=== PATIENT | male | born 1940 | race Caucasian/White ===

== ENCOUNTER 2018-08-29 05:39 | Day surgery (SDC) | payer OTHER, MEDICARE ==
[~2018-08-29] VITALS: Ht 177.8 cm; Wt 74.5 kg
--- NOTE | ~2018-08-29 | O ---
[facility] [place] [address] OPERATIVE REPORT Name: TEZ BELTRAN Room #: 150-8 [facility]#: [id number] Admission: 08/29/18 Attend Phys: Shaun Doe MD Discharge: Date of : 38 Report #: [id number] THIS REPORT FOR: //name// CC: Abdoulaye Hines MD DATE OF SERVICE: 08/29/2018 SURGEON: Shaun Doe MD FRAMING MACHINE TENDER: None. PREOPERATIVE DIAGNOSIS: Bilateral lower lid ectropion. POSTOPERATIVE DIAGNOSIS: Bilateral lower lid ectropion. OPERATION PERFORMED: Bilateral lower lid ectropion repair. ANESTHESIA: Local with IV sedation. COMPLICATIONS: None. INDICATIONS FOR PROCEDURE: This patient has bilateral acquired lower lid ectropion with chronic tearing and discharge. The current procedures are undertaken in order to improve the patient's visual function, lacrimal outflow, and level of comfort. Informed consent was obtained to include but not limit to the risk of loss of vision, bleeding, infection, scarring, failure to improve the problem and need for further surgery. DESCRIPTION OF OPERATION: The patient was taken to the operating room where 2% Xylocaine with epinephrine mixed with equal parts of 0.75% Marcaine with Wydase was administered transcutaneously and transconjunctivally to each lower lid and lateral canthal area. The patient was then prepped and draped in the usual sterile fashion. A Genna clamp was then used to clamp the left lateral canthus following which a sharp canthotomy and cantholysis were performed. The tarsal strip was prepared laterally, removing the lash bearing portion of the redundant lid margin and the redundant tarsal plate. Hemostasis was achieved with a monopolar cautery, as it was throughout the case. The tarsal strip was then secured to the internal portion of the lateral orbital tubercle with two interrupted 5-0 Prolene sutures. The lateral canthal angle was sharply reformed as the subcutaneous structures and the skin were closed with multiple interrupted 6-0 plain gut sutures. Attention was then turned to the right side where the same procedure was [facility] [address] [place] [address] OPERATIVE REPORT Name: TEZ BELTRAN Room #: 150-8 [facility]#: [id number] Admission: 08/29/18 Attend Phys: Shaun Doe MD Discharge: Date of : 39 Report #: [id number] performed. The wounds were cleaned and dressed with ophthalmic antibiotic ointment. The patient was then transported to the recovery area, having tolerated the procedure well with no anesthetic or operative complications being noted. By: 1450 1455 Shaun Doe MD /nt
[~2018-08-29 05:39] MED LIST: ADULT LOW DOSE81 MG PO; ALEVE220 M1 PO; ALEVE220 MG PO; AMBEREN; ANUCORT-HC25 MG RECTAL; APAP/CODEINE ELI5 M1 OR; ARTIFICIAL TEA1 EACH OPHTHALMIC; CARDIZEM CD120 MG; CARDIZEM CD180 MG PO; CARDURA4 MG PO; CARTEOLOL HCL OPHTHALMIC; CARTIA XT180 M1 PO; COUMADIN 2 MG TA2 M1; COUMADIN 5 MG TA5 M1; DOXYCYCLINE 10100 M1; ENOXAPARIN40 MG/0.1; FLOMAX0.4 MG PO; GLUCOSAMINE COMPLEX PO; HYDROCODON-ACE1 EAC8; MIRALAX255 GM PO; MUCINEX600 MG; OXYCONTIN15 MG PO; PRADAXA150 MG PO; PROBIOTIC1 EAC1 PO; PROSCAR 5MG TABL5 MG PO; PROTONIX40 M1 PO; SIMVASTATIN40 MG; TYLENOL325 MG PO; XARELTO20 MG PO; ZOCOR 10 MG TAB10 MG PO; ZPAK PO
[2018-08-29 13:30] VITALS: BP 123/57
== END 2018-08-29 15:55 | disposition home or self-care (01) ==
LOC: TBA 05:39 → OR 05:39
DX: H02.105 Unspecified ectropion of left lower eyelid (principal); H02.102 Unspecified ectropion of right lower eyelid; I48.91 Unspecified atrial fibrillation; E78.00 Pure hypercholesterolemia, unspecified; M10.9 Gout, unspecified; G47.33 Obstructive sleep apnea (adult) (pediatric); K21.9 Gastro-esophageal reflux disease without esophagitis; Z98.41 Cataract extraction status, right eye; Z98.42 Cataract extraction status, left eye; Z96.641 Presence of right artificial hip joint; Z98.890 Other specified postprocedural states; Z85.46 Personal history of malignant neoplasm of prostate; Z85.828 Personal history of other malignant neoplasm of skin; Z87.19 Personal history of other diseases of the digestive system; Z79.01 Long term (current) use of anticoagulants; Z79.899 Other long term (current) drug therapy
CPT/HCPCS: 50010; 50101; 50386; 50398; 51636; 56527; 56531; 62110; 62850; 70005

== ENCOUNTER → 2018-12-26 | Outpatient (CLI) | payer OTHER, MEDICARE ==
[~2018-12-26] VITALS: Ht 177.8 cm; Wt 73.9 kg
--- NOTE | ~2018-12-26 | P ---
[facility] [place] [address] PROCEDURE REPORT Name: BELTRANTEZ Room #: REG [facility]#: [id number] Admission: 12/26/18 ������������������ Attend Phys: Joseph Calderon MD Discharge: ������������������ Date of : 39 Report #: [id number] THIS REPORT FOR: //name// CC: NICOLE Calderon BRIEF HISTORY: The patient is a 78-year-old male with a prior history of Haley's esophagus. He presents for a screening due to his history of Haley's. PREOPERATIVE DIAGNOSIS: History of Haley's esophagus. POSTOPERATIVE DIAGNOSES: 1. Small hiatus hernia. 2. Diffuse erythematous gastritis. MEDICATIONS: Deep sedation with propofol per anesthesia. SPECIMEN: Biopsies GE junction, rule out Haley's. ESTIMATED BLOOD LOSS: 3 mL. PROCEDURE: EGD with biopsy findings. DESCRIPTION OF PROCEDURE: With the patient in left lateral decubitus position, the Olympus video endoscope was inserted in cervical esophagus without difficulty. Examination of this organ through its entire length revealed normal esophageal mucosa down to the squamocolumnar junction. The patient was also noted to have a small 2 cm sliding type hiatus hernia. There was some very slight irregularity of the squamocolumnar junction. It was examined with white light as well as narrow band imaging. Overall, significant Haley's mucosa was not seen. However, he has had biopsy evidence of Haley's mucosa in the past. Biopsies were obtained right at the squamocolumnar junction. The mucosa was flat. There were no strictures or masses. Scope was advanced in the stomach, was examined on end view as well as retroflexed views. There was pattern of a diffuse gastritis. This has been noted in the past. No ulcers or erosions were seen. There were no retained solids or liquids in the stomach. Upon retroflexion, the hiatus hernia was seen. The squamocolumnar junction was examined in the retroflexed position and no additional findings were noted. Scope was further advanced. The pylorus, duodenal bulb, and postbulbar duodenal sweep were inspected and noted to be unremarkable. At that point, the scope was slowly withdrawn and careful circumferential views were obtained. As we withdrew the scope through the esophagus, tertiary contractions were seen. The patient has had solid food dysphagia in the past, but reports no problems at this time with solid food dysphagia. Scope was withdrawn. The patient tolerated the procedure well. [address] [address] PROCEDURE REPORT Name: TEZ BELTRAN [facility]: [facility] [id number] Admission: 12/26/18 ������������������ Attend Phys: Joseph Calderon MD Discharge: ������������������ Date of : 39 Report #: [id number] CONDITION OF THE PATIENT UPON DISCHARGE: Following procedure, the patient drowsy, aroused, conversant and will be discharged home when fully ambulatory. INSTRUCTIONS TO THE PATIENT AND FAMILY AT THE TIME OF DISCHARGE: History of Haley's noted. Findings for Haley's are not impressive at all today. We will follow up on biopsies obtained today. Difficulties distinguishing Haley's mucosa from intestinal metaplasia of the cardia. We will follow up on biopsies and make further recommendations. However, he should continue his PPI for control of reflux symptoms. He has been able to reduce his PPI from twice daily to once daily. We advised him to continue to do so and make adjustments based on symptoms. In addition, the patient tells me just about every meal, when he eats, he will feel food going his airway, he will start coughing. Therefore, we will obtain a video swallow for further evaluation of aspiration. He will otherwise return to care of Dr. Nicole Williamson and return to see me as needed. ��������������������������������������������� ���������������������������������������� By: ��������������������������������������������� 0926 40 Joseph Calderon MD /deon
--- NOTE | 2018-12-30 15:25 | PATH ---
[facility] [address] [place] [address] PATHOLOGY RPT PROCEDURE Name: TEZ BELTRAN Room #: REG SAMUEL Guevara.#: [id number] ������������������ Admission: 12/26/18 ������������������ Date of : 39 Discharge: Report #: [id number] Path Case #: [id number] [facility] Accession Number: [id number] . 01 Material submitted: . BX OF GE JUNCTION R/O SANTAMARIA'S . 01 Clinical history: . Pre-OP DX: Hx Santamaria's esophagus, dysphagia Post-OP DX: Hiatal hernia, gastritis . 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 - Negative for dysplasia. - Squamous mucosa with mild esophagitis. (IUV:pit 12/27/2018) QTP/12/27/2018 . 02 Comment: The above diagnosis of Santamaria's esophagus is made due to presence of intestinal metaplasia and with the assumption that the biopsies were obtained from the columnar mucosa in the distal esophagus located at least 1 cm proximal to the top of the gastric folds as per the 2016 ACG guidelines. (IUV:pit 12/27/2018) . 02 Electronically signed: . Karla Quinteros MD, Pathologist NPI- [id number] . 01 Gross description: . Received in formalin labeled "Tez Beltran, BX of GE junction, rule out Santamaria's," are 4 segments of rainey soft tissue measuring 0.9 x 0.8 x 0.2 cm in aggregate dimensions and ranging from 0.3 to 0.5 cm in maximum dimension. The specimen is submitted entirely in cassette A1. (TSD; 12/26/2018) TOB/TOB . 02 Pathologist provided ICD-10: K22.70, K20.9 . 02 CPT . 884026 Specimen Comment: Report sent to / [place] [address] PATHOLOGY RPT PROCEDURE Name: TEZ BELTRAN Room #: REG SAMUEL Gonzalez#: [id number] ������������������ Admission: 12/26/18 ������������������ Date of : 39 Discharge: Report #: [id number] Path Case #: [id number] Performed at: 01 [facility] Miguel Angel Roach [address], [place] [id number] MD Timothy Combs MD Phone: [phone] Performed at: [address] [id number] MD Karla Quinteros MD Phone: [phone]
== END | disposition home or self-care (01) ==
LOC: GI 07:11
DX: K22.70 Barrett's esophagus without dysplasia (principal); K29.70 Gastritis, unspecified, without bleeding; K44.9 Diaphragmatic hernia without obstruction or gangrene; I10 Essential (primary) hypertension; K21.9 Gastro-esophageal reflux disease without esophagitis; E78.5 Hyperlipidemia, unspecified; M10.9 Gout, unspecified; I48.91 Unspecified atrial fibrillation; G47.33 Obstructive sleep apnea (adult) (pediatric); Z85.828 Personal history of other malignant neoplasm of skin; Z85.46 Personal history of malignant neoplasm of prostate; Z79.01 Long term (current) use of anticoagulants; Z98.41 Cataract extraction status, right eye; Z98.42 Cataract extraction status, left eye; Z98.890 Other specified postprocedural states; Z79.899 Other long term (current) drug therapy
CPT/HCPCS: 62110; 62900

== ENCOUNTER → 2021-01-23 | Outpatient (CLI) | payer OTHER ==
[~2021-01-23] MED LIST changes: +ELIQUIS5 MG PO
== END ==
LOC: LAB 10:28
PROVIDERS: ATTEND Internal Medicine Gastroenterology
DX: Z01.812 Encounter for preprocedural laboratory examination (principal); Z20.822 Contact with and (suspected) exposure to COVID-19

== ENCOUNTER → 2021-01-28 | Outpatient (CLI) | payer OTHER, MEDICARE ==
[~2021-01-28] VITALS: Ht 177.8 cm; Wt 71.2 kg
--- NOTE | 2021-01-31 14:06 | PATH ---
[facility] [place] [address] PATHOLOGY RPT PROCEDURE Name: DEVINJAGUAR Ochoa Room #: REG SAMUEL Guevara.#: [id number] Admission: 01/28/21 Date of : 39 Discharge: Report #: [id number] Path Case #: [id number] [facility] Accession Number: [id number] . 01 Material submitted: . PART A: cecum - BIOPSY CECAL POLYP PART B: colon - BIOPSY ASCENDING COLON POLYP. Modifiers: ascending . 01 Clinical history: . 5YR HISTORY OF POLYPS COLONOSCOPY DIVERTICULOSIS, POLYPS, HEMORRHOIDS DTS/COLONOSCOPY/5 YR HX POLYPS . 02 Diagnosis: A. Polyp, cecal colon polyp, endoscopic biopsy: - Tubular adenoma. - Negative for high-grade dysplasia. . B. Polyp, ascending colon polyp, endoscopic biopsy: - Tubular adenoma. - Negative for high-grade dysplasia. . (IUV:seema; 01/31/2021) MBR 01/31/2021 1225 Local . 02 Electronically signed: . Karla Quinteros MD, Pathologist NPI- [id number] . 01 Gross description: . A. The specimen is received in formalin, labeled "Devin Jaguar", "biopsy cecal colon polyp". Received is a single segment of pale rainey soft tissue measuring 0.5 cm. The specimen is entirely submitted in cassette A1. . B. The specimen is received in formalin, labeled "Jaguar Beltran", "biopsy ascending colon polyp". Received are 2 segments of pale rainey soft tissue measuring 0.1 and 0.1 cm. The specimen is entirely submitted in cassette B1.([facility]; 01/30/2021) [facility] 01/30/2021 [facility] Local . 02 Pathologist provided ICD-10: D12.0, D12.2 . 02 CPT . 009287, [id number] [place] [address] PATHOLOGY RPT PROCEDURE Name: JUAREZ BELTRANRAFAELA Ochoa Room #: REG [facility] Lisa#: [id number] Admission: 01/28/21 Date of : 39 Discharge: Report #: [id number] Path Case #: [id number] Specimen Comment: A courtesy copy of this report has been sent to [phone] Specimen Comment: [phone] Specimen Comment: Report sent to / DR BREWSTER Performed at: [address] [facility] [address], [place], [place] [id number] MD Al Willis MD Phone: [phone] Performed at: [address] [id number] MD Karla Quinteros MD Phone: [phone]
== END | disposition home or self-care (01) ==
LOC: GI 08:41
PROVIDERS: ATTEND Internal Medicine Gastroenterology
DX: Z12.11 Encounter for screening for malignant neoplasm of colon (principal); Z86.010 Personal history of colon polyps; D12.0 Benign neoplasm of cecum; D12.2 Benign neoplasm of ascending colon; K57.30 Diverticulosis of large intestine without perforation or abscess without bleeding; K64.8 Other hemorrhoids; I10 Essential (primary) hypertension; I48.91 Unspecified atrial fibrillation; N40.0 Benign prostatic hyperplasia without lower urinary tract symptoms; H40.9 Unspecified glaucoma; G47.30 Sleep apnea, unspecified; K21.9 Gastro-esophageal reflux disease without esophagitis; Z98.890 Other specified postprocedural states; Z79.899 Other long term (current) drug therapy; Z79.01 Long term (current) use of anticoagulants; Z85.46 Personal history of malignant neoplasm of prostate; Z85.828 Personal history of other malignant neoplasm of skin
CPT/HCPCS: 62110; 62900

== ENCOUNTER 2021-02-23 08:37 | Emergency (ER) | payer OTHER, MEDICARE ==
[~2021-02-23] VITALS: Ht 177.8 cm; Wt 72.1 kg
[2021-02-23 09:24] LABS: ABSOLUTE NEUTROPHILS 4.2 thou/uL (1.4-8.2); BASOPHILS 0.6 % (0.0-2.0); EOSINOPHILS 6.4 % (0.0-3.0); HEMATOCRIT 35.8 % (42.0-52.0); HEMOGLOBIN 11.9 gm/dL (14.0-18.0); LYMPHOCYTES 17.4 % (24.0-44.0); MCHC 33.2 g/dL (28.0-37.0); MCV 93.2 fL (80.0-100.0); MONOCYTES 17.3 % (1.0-8.0); PLATELET COUNT 258 thou/uL (150-400); POLYS 58.3 % (36.0-66.0); RBC 3.84 mil/uL (4.50-6.00); RDW 14.4 % (10.5-14.5); WBC 7.1 thou/uL (4.0-11.0)
[2021-02-23 09:26] LABS: CALCIUM 8.4 mg/dL (8.5-10.1); POTASSIUM 4.5 mmol/L (3.5-5.1)
[2021-02-23 09:30] LABS: APTT 26.6 Seconds (24.5-32.8); PROTIME 10.9 Seconds (9.3-11.4)
[2021-02-23] MEDS ORDERED: NORCO5 PO (10:18)
[2021-02-23] MEDS ORDERED: CEPHALEXIN500 MG PO (10:18)
[2021-02-23 10:50] VITALS: BP 136/56
== END 2021-02-23 11:09 | disposition home or self-care (01) ==
LOC: ER 08:37
PROVIDERS: Emergency Medicine
DX: M66.0 Rupture of popliteal cyst (principal); I48.91 Unspecified atrial fibrillation; E78.5 Hyperlipidemia, unspecified; H40.9 Unspecified glaucoma; M25.551 Pain in right hip; I10 Essential (primary) hypertension; N40.0 Benign prostatic hyperplasia without lower urinary tract symptoms; K21.9 Gastro-esophageal reflux disease without esophagitis; Z96.641 Presence of right artificial hip joint; Z79.899 Other long term (current) drug therapy

== ENCOUNTER → 2021-12-29 | Outpatient (CLI) | payer OTHER, MEDICARE ==
[~2021-12-29] MED LIST changes: +CEPHALEXIN500 MG PO; +NORCO5 PO
--- NOTE | 2021-12-29 16:20 | 2DMMODE ---
[facility] [place] [address] 2 D/M-MODE ECHOCARDIOGRAM Name: BELTRANTEZ Room #: [facility]#: [id number] Admission: 12/29/21 Attend Phys: Damian Rincon, Discharge: Date of : 39 Report #: [id number] THIS REPORT FOR: cc: Abdoulaye Williamson MD, Eric K. MD Lammoglia, Francisco J. MD ~ APPROVED REPORT Study performed: 12/29/2021 11:52:59 EXAM: Comprehensive 2D, Doppler, and color-flow Echocardiogram Patient Location: Echo lab Status: routine BSA: 1.93 HR: 58 bpm BP: 138/84 mmHg Rhythm: NSR Other Information Study Quality: Adequate Indications Pre-Op 2D Dimensions RVDd: 38.25 mm IVSd: 9.63 (7-11mm) LVOT Diam: 20.42 (18-24mm) LVDd: 52.37 mm PWd: 8.86 (7-11mm) Ascending Ao: 36.90 (22-36mm) LVDs: 36.71 (25-40mm) Left Atrium: 27.80 (27-40mm) Aortic Root: 36.70 mm IVC: 17.00 mm Volumes Left Atrial Volume (Systole) Single Plane 4CH: 33.97 mL Single Plane 2CH: 30.60 mL LA ESV Index: 19.00 mL/m2 Aortic Valve AoV Peak Ryley.: 1.41 m/s AO Peak Gr.: 7.95 mmHg LVOT Max P.24 mmHg LVOT Max V: 1.03 m/s CARMEN Vmax: 2.39 cm2 [facility] [address] [address] 2 D/M-MODE ECHOCARDIOGRAM Name: TEZ BELTRAN Room #: REG [facility]#: [id number] Admission: 12/29/21 Attend Phys: Damian Puckett Discharge: Date of : 39 Report #: [id number] Mitral Valve E/A Ratio: 0.6 MV Decel. Time: 314.94 ms MV E Max Ryley.: 0.36 m/s MV A Ryley.: 0.60 m/s MV PHT: 91.33 ms IVRT: 143.02 ms Pulmonary Valve PV Peak Ryley.: 1.06 m/s PV Peak Gr.: 4.49 mmHg Pulmonary Vein P Vein S: 0.45 m/s P Vein A: 0.34 m/s P Vein D: 0.26 m/s P Vein A Dur.: 138.4 msec P Vein S/D Ratio: 1.73 Tricuspid Valve TR Peak Ryley.: 2.18 m/s TR Peak Gr.: 18.93 mmHg PA Pressure: 24.00 mmHg Left Ventricle The left ventricle is normal size. There is normal LV segmental wall motion. There is normal left ventricular wall thickness. Left ventricular systolic function is normal. The left ventricular ejection fraction is within the normal range. LVEF is >55%. Grade I - abnormal relaxation pattern. Right Ventricle The right ventricle is normal size. The right ventricular systolic function is normal. Atria The left atrium size is normal. The right atrium size is normal. Aortic Valve The aortic valve is normal in structure. No aortic regurgitation is present. There is no aortic valvular stenosis. Mitral Valve The mitral valve is normal in structure. Trace mitral regurgitation. No evidence of mitral valve stenosis. Tricuspid Valve [facility] [address] [place] [address] 2 D/M-MODE ECHOCARDIOGRAM Name: BELTRANTEZ Room #: REG Lisa#: [id number] Admission: 12/29/21 Attend Phys: Damian Puckett Discharge: Date of : 38 Report #: [id number] The tricuspid valve is normal in structure. There is trace tricuspid regurgitation. Estimated PAP 24 mmHg. There is no pulmonary hypertension. Pulmonic Valve The pulmonary valve is normal in structure. Trace to mild pulmonic regurgitation. Great Vessels The aortic root is normal in size. IVC is normal in size and collapses >50% with inspiration. Pericardium There is no pericardial effusion. <Conclusion> The left ventricle is normal size. There is normal left ventricular wall thickness. LVEF is >55%. The right ventricle is normal size. The left atrium size is normal. The aortic valve is normal in structure. The mitral valve is normal in structure. Trace mitral regurgitation. The tricuspid valve is normal in structure. There is trace tricuspid regurgitation. Estimated PAP 24 mmHg. There is no pulmonary hypertension. The pulmonary valve is normal in structure. Trace to mild pulmonic regurgitation. The aortic root is normal in size. There is no pericardial effusion. <ELECTRONICALLY SIGNED> By: Tamir Mackay MD 12/29/21 162 19 19 Tamir Mackay MD /INF
== END ==
LOC: CV 11:17
PROVIDERS: ATTEND Internal Medicine Cardiovascular Disease
DX: Z01.810 Encounter for preprocedural cardiovascular examination (principal); I37.1 Nonrheumatic pulmonary valve insufficiency